=== PATIENT | female | born 1985 | race Caucasian/White ===

== ENCOUNTER 2017-07-29 17:14 | Emergency (ER) | payer MEDICAID ==
[~2017-07-29] VITALS: Ht 157.5 cm; Wt 62.0 kg
[~2017-07-29 17:14] MED LIST: CEPH-443 PO; PHEN-537 PO
[2017-07-29 17:17] VITALS: Ht 157.5 cm; Wt 62.0 kg
[2017-07-29] MEDS ORDERED: HYDROCODONE/APAP (5/325) TAB PO ONE (18:30)
[2017-07-29 18:52] LABS: URINE BLOOD (Dip) POC Trace-lysed (NEGATIVE)
--- NOTE | 2017-07-29 20:01 | ERD ---
ER Documentation Chief Complaint Date/Time DATE: 07/29/17 TIME: 19:59 Chief Complaint Complains of a headache x 3 weeks HPI This is a 32-year-old female who presents the emergency department today complaining of intermittent headache for the past 3 weeks. Patient states that she has taken Tylenol and ibuprofen with slight improvement but then the headache returns. Sit is been worse for the past couple of days. Denies any nausea vomiting or blurred vision. States she does have some light sensitivity. ROS All systems reviewed and are negative except as per history of present illness. Medications Home Meds Active Scripts Aspirin/Acetaminophen/Caffeine (Excedrin Migraine Caplet) 1 Each Tablet, 1 EACH PO Q6, #20 TAB Prov:TIFFANIE CARLSON PA-C 07/29/17 Naproxen* (Naprosyn*) 500 Mg Tablet, 500 MG PO BID Y for PAIN AND/OR INFLAMMATION, #30 TAB Prov:TIFFANIE CARLSON PA-C 07/29/17 Phenazopyridine Hcl* (Pyridium*) 100 Mg Tab, 100 MG PO TID Y for URINARY PAIN, # 8 TAB Prov:PRAKASH WOLF PA-C 05/29/16 Cephalexin* (Keflex*) 500 Mg Capsule, 500 MG PO QID for 7 Days, CAP Prov:PRAKASH WOLF PA-C 05/29/16 Allergies Allergies: Coded Allergies: No Known Allergy (Unverified , 05/29/16) PMhx/Soc Medical and Surgical Hx: pt denies Medical Hx, pt denies Surgical Hx Hx Alcohol Use: No Hx Substance Use: No Hx Tobacco Use: No Physical Exam Vitals Vital Signs Date Time Temp Pulse Resp B/P Pulse Ox O2 Delivery O2 Flow Rate FiO2 07/29/17 17:17 99.1 79 20 127/63 98 Physical Exam Const: NAD Head: Atraumatic Eyes: Normal Conjunctiva. PERRLA, EOM intact ENT: Normal External Ears, Nose and Mouth. Neck: Full range of motion..~ No meningismus. Resp: Clear to auscultation bilaterally Cardio: Regular rate and rhythm, no murmurs Abd: Soft, non tender, non distended. Normal bowel sounds Skin: No petechiae or rashes Back: No midline or flank tenderness Ext: No cyanosis, or edema Neur: Awake and alert. Cranial nerves II through XII intact. No gait ataxia. Psych: Normal Mood and Affect Results 24 hrs Laboratory Tests Test 07/29/17 19:00 Bedside Urine pH (LAB) 5.5 Bedside Urine Protein (LAB) Negative Bedside Urine Glucose (UA) Negative Bedside Urine Ketones (LAB) Negative Bedside Urine Blood Trace-lysed Bedside Urine Nitrite (LAB) Negative Bedside Urine Leukocyte Esterase (L Negative Current Medications Medications (Trade) Dose Ordered Sig/Bhavna Route PRN Reason Start Time Stop Time Status Last Admin Dose Admin Acetaminophen/ Hydrocodone Bitart ([place] (5/325)) 1 tab ONCE ONCE PO 07/29/17 18:30 07/29/17 18:31 DC 07/29/17 18:51 DIAGNOSTIC IMAGING REPORT Patient: CALVIN MARTINEZ : 1985 Age: 32 Sex: F MR #: [id number] DOS: 07/29/17 0000 Ordering MD: TIFFANIE CARLSON PA-C Location: [facility] Room/Bed: PROCEDURE: CT Brain without contrast. CLINICAL INDICATION: Headache for 3 weeks. TECHNIQUE: A CT of the brain was performed on a [employer] 64-slice CT scanner utilizing axial imaging from the skull base through the vertex without IV contrast. Multiplanar reformatted images were made. Images were reviewed on a PACS workstation. One or more the following dose reduction techniques were utilized: Automated exposure control, adjustment of mA/ or kV according to patient's size, or use of iterative reconstruction technique. The CTDIvol is 45.0 mGy and the DLP is 720.2 mGycm. COMPARISON: None FINDINGS: There is no intracranial hemorrhage, mass effect, or midline shift. No extra- axial fluid collection is seen. The ventricles and sulci are normal in size and configuration. There are punctate calcifications within the left frontal lobe, left parietal lobe, and left posterior temporal lobe. These likely reflect sequelae related to prior infection. The density of the brain is normal, and the delgado white matter differentiation appears well-preserved. The visualized paranasal sinuses and osseous structures are grossly unremarkable. IMPRESSION: 1. No evidence of acute intracranial pathology. 2. 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 No surrounding edema is seen. 3. The brain is otherwise normal in appearance. RPTAT: PP .Livier Peguero MD, MD Date Time Electronically viewed and signed by .Livier Peguero MD, on 07/29/2017 20:13 .H/ CC: TIFFANIE CARLSON PA-C Procedures/MDM This is a 32-year-old female who presents the emergency department today complaining of intermittent headaches for the past 3 weeks. Given duration of symptoms and patient having difficulty resolving her headaches with over-the- counter medications I did obtain a head CT scan. UA is negative for infection. test is negative Head CT non contrast evidence of acute intracranial pathology. There is no intracranial hemorrhage, mass-effect or midline shift. There is no extra-axial fluid collection. There are punctate calcifications with the left frontal lobe left parietal lobe and left posterior temporal lobe likely reflects likely related to prior infection from such things as sister cirrhosis. There is no surrounding edema seen. Brain is otherwise normal. Symptoms at this time is consistent with headache. Low suspicion for acute hemorrhage, mass, abscess, meningitis. She was given [place] here in the emergency department and pain resolved. She was given a prescription for Excedrin and Naprosyn for home. At this time the patient is stable for discharge and outpatient management. Patient should follow up with their PCP in the next 1-2 days. She was given a list of community resources as well as neurology specialist. They may return to the emergency department sooner for any persistent or worsening of symptoms. Patient understood and agreed with the plan. Departure Diagnosis: Primary Impression: Headache Headache type: unspecified Headache chronicity pattern: episodic headache Intractability: not intractable Qualified Code: R51 - Nonintractable episodic headache, unspecified headache type Condition: Fair TIFFANIE CARLSON PA-C Jul 29, 2017 20:01
--- NOTE | 2017-07-29 20:13 | RADRPT ---
PROCEDURE: CT Brain without contrast. CLINICAL INDICATION: Headache for 3 weeks. TECHNIQUE: A CT of the brain was performed on a [employer] 64-slice CT scanner utilizing axial imaging from the skull base through the vertex without IV contrast. Multiplanar reformatted images were made. Images were reviewed on a PACS workstation. One or more the following dose reduction pat hniques were utilized: Automated exposure control, adjustment of mA/ or kV according to patient's s ize, or use of iterative reconstruction technique. The CTDIvol is 45.0 mGy and the DLP is 720.2 mGy cm. COMPARISON: None FINDINGS: There is no intracranial hemorrhage, mass effect, or midline shift. No extra-axial fluid collection is seen. The ventricles and sulci are normal in size and configuration. There are punctate calcific ations within the left frontal lobe, left parietal lobe, and left posterior temporal lobe. These lik jared reflect sequelae related to prior infection. The density of the brain is normal, and the delgado wh ite matter differentiation appears well-preserved. The visualized paranasal sinuses and osseous str uctures are grossly unremarkable. IMPRESSION: 1. No evidence of acute intracranial pathology. 2. 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 No surrounding edema is seen. 3. The brain is otherwise normal in appearance. RPTAT: PP .Livier Peguero MD, MD Date Time Electronically viewed and signed by .Livier Peguero MD, MD on 07/29/2017 20:13 .H/
[2017-07-29] MEDS ORDERED: NAPR-260 PO (20:26)
[2017-07-29] MEDS ORDERED: ASPI1TAB31 PO (20:28)
== END 2017-07-29 20:38 | disposition home or self-care (01) ==
LOC: FTE 17:14
DX: R51 Headache (principal)
CPT/HCPCS: 70450; 81003; Z7502; Z7610